=== PATIENT | female | born 1960 | race Asian ===

== ENCOUNTER 2024-05-22 06:20 | Emergency (ER) | payer OTHER ==
[~2024-05-22] VITALS: Ht 160 cm; Wt 59.0 kg
[2024-05-22 06:22] VITALS: O2SAT 98
[2024-05-22] MEDS: ONDANSETRON HCL 4MG/2ML INJ IV STA (06:53)
[2024-05-22] MEDS: DIPHENHYDRAMINE 50MG/ML VIAL IV ONE (06:53)
[2024-05-22] MEDS: SODIUM CHLORIDE 0.9% 1,000 ML IV ONE (06:54)
[2024-05-22] MEDS: ACETAMINOPHEN 1000MG/100ML 100 ML IV ONE (06:54)
[2024-05-22 07:25] LABS: BASOPHILS % 0.2 % (0.0-2.0); EOSINOPHILS % 0.2 % (0.0-5.0); HEMATOCRIT. 40.4 % (36.0-48.0); HEMOGLOBIN. 13.5 g/dL (12.0-16.0); LYMPHOCYTES % 12.3 % (20.0-50.0); MEAN CORPUSCULAR HEMOGLOBIN 29.6 pg (28.0-32.0); MEAN CORPUSCULAR HGB CONC 33.4 g/dL (31.0-37.0); MEAN CORPUSCULAR VOLUME 88.8 fL (81.0-99.0); MEAN PLATELET VOLUME 7.4 fl (7.4-10.4); MONOCYTES % 2.7 % (2.0-8.0); NEUTROPHILS % 84.6 % (40.0-76.0); PLATELET 180 x1000/uL (130-400); RED BLOOD CELL COUNT 4.56 mill/uL (4.2-5.4); RED CELL DISTRIBUTION WIDTH 14.3 % (11.6-14.6); WHITE BLOOD COUNT 7.7 x1000/uL (4.5-11.0)
[2024-05-22 07:36] LABS: CARBON DIOXIDE 29 mEq/L (21-32); CHLORIDE 101 mEq/L (98-107); POTASSIUM 5.9 mEq/L (3.5-5.1); SODIUM 138 mEq/L (136-145)
[2024-05-22 07:42] LABS: CREATININE 0.8 mg/dL (0.6-1.0); GLUCOSE 131 mg/dL (70-105); UREA NITROGEN BLOOD 12 mg/dL (9-23)
[2024-05-22 07:43] LABS: TROPONIN I HIGH SENSITIVITY 12 ng/L (3.0-34)
[2024-05-22 07:44] LABS: ALANINE AMINOTRANSFERASE 37 IU/L (10-49); ALBUMIN 5.2 g/dL (3.2-4.8); ASPARTATE AMINOTRANSFERASE 84 IU/L (<34); BILIRUBIN DIRECT 0.2 mg/dL (<=3.0); BILIRUBIN TOTAL 0.8 mg/dL (0.1-1.0); PROTEIN TOTAL 8.3 g/dL (6.0-8.3)
[2024-05-22] MEDS: IOHEXOL-350 100 ML BOTTLE ONE (08:25)
[2024-05-22 09:23] LABS: PROTHROMBIN TIME 10.7 sec (9.6-11.0)
[2024-05-22 10:00] VITALS: TEMP 37
[2024-05-22 11:22] LABS: CALCIUM 10.5 mg/dL (8.7-10.4)
[2024-05-22 11:46] VITALS: BP 102/64; PULSE 87; RESP 15; TEMP 98.6; O2SAT 97
[2024-05-22 12:29] LABS: CLARITY URINE CLEAR (CLEAR); COLOR URINE YELLOW (YELLOW); GLUCOSE URINE NEGATIVE (NEGATIVE); KETONES URINE NEGATIVE (NEGATIVE); LEUKOCYTE ESTERASE URINE NEGATIVE (NEGATIVE); NITRITE URINE NEGATIVE (NEGATIVE); OCCULT BLOOD URINE 2+ (NEGATIVE); PH URINE 7.5 (4.5-8.0); PROTEIN URINE 1+ (NEGATIVE); SPECIFIC GRAVITY URINE 1.036 (1.005-1.030); UROBILINOGEN URINE 0.2 E.U./dL (0.2-1.0)
[2024-05-22] MEDS ORDERED: SODIUM POLYSTYRENE SULFONATE 15 G/60 ML BOT PO NR (13:15)
[2024-05-22] MEDS ORDERED: INSULIN REGULAR (HUMULIN R) 1000UNITS/10ML VIAL IV NR (13:15)
[2024-05-22] MEDS ORDERED: DEXTROSE 50% WATER 50ML SYRINGE IV NR (13:15)
[2024-05-22] MEDS ORDERED: ALBUTEROL (0.083%) 2.5MG/3ML NEB HHN NR (13:15)
[2024-05-22] MEDS ORDERED: CLONIDINE 0.1MG TABLET PO PRN (13:15)
[2024-05-22] MEDS ORDERED: ACETAMINOPHEN 325MG TABLET PO PRN (13:15)
[2024-05-22] MEDS ORDERED: DOCUSATE SODIUM 100MG CAPSULE PO PRN (13:15)
[2024-05-22] MEDS ORDERED: ONDANSETRON HCL 4MG/2ML INJ IV PRN (13:15)
[2024-05-22] MEDS ORDERED: CALCIUM CHLORIDE 1GM/10ML SYR IV NR (13:15)
[2024-05-22] MEDS ORDERED: SODIUM BICARBONATE 8.4% 50MEQ/50ML SYR IV NR (13:15)
[2024-05-22] MEDS ORDERED: IPRATROPIUM/ALBUTEROL 0.5-3(2.5)MG/3ML NEB HHN PRN (13:15)
[2024-05-22] MEDS ORDERED: DEXTROSE 50% WATER 50ML SYRINGE IV PRN (13:15)
[2024-05-22] MEDS ORDERED: BLOOD SUGAR DIAGNOSTIC STRIP TEST SCH (13:30)
[2024-05-22] MEDS ORDERED: SODIUM CHLORIDE 0.9% 1,000 ML IV SCH (13:30)
[2024-05-22] MEDS ORDERED: PANTOPRAZOLE SODIUM 40 MG/VIAL IV SCH (13:30)
[2024-05-22 14:18] LABS: SQUAMOUS EPITHELIAL CELL URINE RARE /lpf (RARE/1+)
[2024-05-22 14:19] LABS: RBC URINE 15-25 /hpf (0-2); WBC URINE 0-2 /hpf (0-2)
[2024-05-22 14:21] LABS: BACTERIA URINE NONE SEEN
== END 2024-05-22 14:15 | disposition left against medical advice (07) ==
LOC: ER 06:43 → EDBEDREQ 10:23 → EDBEDREQSVC 10:23 → EDBEDREQTM 10:23 → CANBEDREQ 14:05 → ER 14:15
DX: G43.909 Migraine, unspecified, not intractable, without status migrainosus (principal); R11.2 Nausea with vomiting, unspecified; R10.9 Unspecified abdominal pain; Z79.899 Other long term (current) drug therapy; Z98.890 Other specified postprocedural states; Z91.041 Radiographic dye allergy status; Z87.19 Personal history of other diseases of the digestive system; Z88.8 Allergy status to other drugs, medicaments and biological substances; Z88.6 Allergy status to analgesic agent
CPT/HCPCS: 99285; 96365; 70496; 96375; 80076; 80048; 81003; 83690; 85025; 85610; 84484; 36415; Q9967; J1200; J2405; J7030; J0131